=== PATIENT | female | born 1985 | race Two or more races ===

== ENCOUNTER 2023-05-23 06:03 | Emergency (ER) | payer MEDICAID, OTHER ==
[~2023-05-23] VITALS: Ht 167.6 cm; Wt 81.0 kg
[2023-05-23 06:03] VITALS: BP 130/77; PULSE 75; RESP 22; TEMP 98; O2SAT 100
[2023-05-23] MEDS ORDERED: KETOROLAC TROMETH 60MG/2ML VIAL IM ONE (08:00)
[2023-05-23] MEDS ORDERED: HYDROcodone-ACET 5/325MG TAB PO ONE (08:00)
[2023-05-23] MEDS ORDERED: PRED20TA2 PO (08:44)
[2023-05-23] MEDS ORDERED: TRAM50TA2 PO (08:44)
== END 2023-05-23 08:56 | disposition home or self-care (01) ==
LOC: EDBD 06:03 → ER 06:03
DX: M54.41 Lumbago with sciatica, right side (principal); G89.29 Other chronic pain; Z79.899 Other long term (current) drug therapy
CPT/HCPCS: 72100; 96372; 99283; J1885